=== PATIENT | female | born 1995 | race African-American/Black ===

== ENCOUNTER 2018-04-23 22:01 | Emergency (ER) | payer OTHER ==
[~2018-04-23] VITALS: Ht 154.9 cm; Wt 90.7 kg
[~2018-04-23 22:01] MED LIST: ACYCLOVIR 400400 MG PO; CIPROFLOXACIN500 M1 PO; CYCLOBENZAPRINE5 MG PO; IBUPROFEN 800800 MG PO; NAPROSYN500 MG PO; NORCO 5-325 TA1 EAC1 PO; PENICILLIN VK500 MG PO; TOBRADEX ST EYE5 ML OPHTHALMIC
[2018-04-23 22:24] LABS: URINE BILIRUBIN NEGATIVE (Negative); URINE BLOOD TRACE (Negative); URINE CLARITY CLEAR; URINE COLOR YELLOW; URINE GLUCOSE-RANDOM NEGATIVE (Negative); URINE KETONES NEGATIVE (Negative); URINE LEUKOCYTES-REFLEX 1+ (Negative); URINE NITRITE-REFLEX NEGATIVE (Negative); URINE PROTEIN NEGATIVE (Negative); URINE SPECIFIC GRAVITY 1.025 (1.005-1.030)
[2018-04-23 22:33] LABS: BACTERIA-REFLEX 1-9 Few /HPF (None Seen); CASTS None Seen /LPF (None Seen); CRYSTALS None Seen /LPF (None Seen); SQUAMOUS 4-10 Moderate /LPF (0-3); URINE RBC 0-2 Rare /HPF (0-2); URINE WBC-REFLEX 6-15 Few /HPF (0-5)
[2018-04-23] MEDS ORDERED: FLAGYL500 MG PO (23:18)
[2018-04-23] MEDS ORDERED: DOXYCYCLINE 10100 MG PO (23:45)
[2018-04-23 23:49] VITALS: BP 127/70
== END 2018-04-23 23:52 | disposition home or self-care (01) ==
LOC: M.ERS 22:01
PROVIDERS: Nurse Practitioner Family
DX: N72 Inflammatory disease of cervix uteri (principal); N76.0 Acute vaginitis; B96.89 Other specified bacterial agents as the cause of diseases classified elsewhere; N73.9 Female pelvic inflammatory disease, unspecified

== ENCOUNTER 2018-05-09 15:57 | Emergency (ER) | payer OTHER ==
[~2018-05-09] VITALS: Ht 154.9 cm; Wt 90.7 kg
[~2018-05-09 15:57] MED LIST changes: +DOXYCYCLINE 10100 MG PO; +FLAGYL500 MG PO
[2018-05-09 16:05] VITALS: BP 137/81
== END 2018-05-09 16:37 | disposition home or self-care (01) ==
LOC: M.ERS 15:57
DX: K64.8 Other hemorrhoids (principal)

== ENCOUNTER 2018-08-23 12:36 | Emergency (ER) | payer OTHER ==
[~2018-08-23] VITALS: Ht 154.9 cm; Wt 93.0 kg
[2018-08-23 12:52] LABS: URINE BILIRUBIN NEGATIVE (Negative); URINE BLOOD NEGATIVE (Negative); URINE CLARITY CLEAR; URINE COLOR YELLOW; URINE GLUCOSE-RANDOM NEGATIVE (Negative); URINE KETONES NEGATIVE (Negative); URINE LEUKOCYTES-REFLEX NEGATIVE (Negative); URINE NITRITE-REFLEX NEGATIVE (Negative); URINE PROTEIN NEGATIVE (Negative); URINE UROBILINOGEN 0.2 E.U./dl (0.2-1.0)
[2018-08-23 13:38] LABS: CREATININE 0.7 mg/dL (0.6-1.3); POTASSIUM 4.5 mmol/L (3.5-5.1)
[2018-08-23 13:42] LABS: ALBUMIN 3.8 g/dL (3.4-5.0); TOTAL BILIRUBIN 0.4 mg/dL (<0.1-1.0)
[2018-08-23 13:46] LABS: ABSOLUTE BASOPHILS 0.1 thou/uL (0.0-0.2); ABSOLUTE LYMPHOCYTES 1.5 thou/uL (0.8-5.3); ABSOLUTE MONOCYTES 0.7 thou/uL (0.0-1.2); ABSOLUTE NEUTROPHILS 11.8 thou/uL (1.6-8.1); BASOPHILS 0.5 %; EOSINOPHILS 0.3 %; HEMOGLOBIN 13.9 gm/dL (12.0-15.0); LYMPHOCYTES 10.4 %; MCH 29.7 pg (26.0-34.0); MCHC 33.9 g/dL (28.0-37.0); MCV 87.4 fL (80.0-100.0); MONOCYTES 5.2 %; MPV 9.4 fl. (7.2-11.1); NUCLEATED RBCS 0 /100WBC; PLATELET COUNT* 198 thou/uL (150-400); POLYS 83.6 %; RBC 4.69 mil/uL (4.20-5.00); RDW-CV 14.2 % (10.5-14.5); WBC 14.1 thou/uL (4.0-11.0)
[2018-08-23] MEDS ORDERED: BENTYL 20 MG TA20 M1 PO (14:14)
[2018-08-23] MEDS ORDERED: ZOFRAN ODT4 MG PO (14:14)
[2018-08-23 14:33] VITALS: BP 143/83
== END 2018-08-23 14:33 | disposition home or self-care (01) ==
LOC: M.ERS 12:36
PROVIDERS: Nurse Practitioner Family
DX: K52.9 Noninfective gastroenteritis and colitis, unspecified (principal); N72 Inflammatory disease of cervix uteri; F17.210 Nicotine dependence, cigarettes, uncomplicated

== ENCOUNTER 2018-10-18 18:30 | Emergency (ER) | payer OTHER ==
[~2018-10-18] VITALS: Ht 154.9 cm; Wt 93.0 kg
[~2018-10-18 18:30] MED LIST changes: +BENTYL 20 MG TA20 M1 PO; +ZOFRAN ODT4 MG PO
[2018-10-18 19:24] LABS: URINE BILIRUBIN NEGATIVE (Negative); URINE BLOOD NEGATIVE (Negative); URINE CLARITY CLEAR; URINE COLOR YELLOW; URINE GLUCOSE-RANDOM NEGATIVE (Negative); URINE KETONES NEGATIVE (Negative); URINE LEUKOCYTES-REFLEX NEGATIVE (Negative); URINE NITRITE-REFLEX NEGATIVE (Negative); URINE PROTEIN NEGATIVE (Negative); URINE SPECIFIC GRAVITY 1.015 (1.005-1.030)
[2018-10-18 19:44] LABS: ABSOLUTE EOSINOPHILS 0.2 thou/uL (0.0-0.7); ABSOLUTE MONOCYTES 0.7 thou/uL (0.0-1.2); ABSOLUTE NEUTROPHILS 5.6 thou/uL (1.6-8.1); BASOPHILS 0.5 %; EOSINOPHILS 2.6 %; HEMATOCRIT 41.1 % (37.0-47.0); HEMOGLOBIN 14.3 gm/dL (12.0-15.0); LYMPHOCYTES 31.3 %; MCH 29.9 pg (26.0-34.0); MCHC 34.8 g/dL (28.0-37.0); MPV 8.8 fl. (7.2-11.1); NUCLEATED RBCS 0 /100WBC; PLATELET COUNT* 220 thou/uL (150-400); POLYS 58.6 %; RBC 4.77 mil/uL (4.20-5.00); RDW-CV 14.2 % (10.5-14.5); WBC 9.6 thou/uL (4.0-11.0)
[2018-10-18 19:54] LABS: ALBUMIN 4.1 g/dL (3.4-5.0); CALCIUM 9.3 mg/dL (8.5-10.1); CREATININE 0.7 mg/dL (0.6-1.3); TOTAL BILIRUBIN 0.2 mg/dL (<0.1-1.0); TOTAL PROTEIN 8.5 g/dL (6.4-8.2)
[2018-10-18] MEDS ORDERED: DOXYCYCLINE 10100 MG PO (22:25)
[2018-10-18] MEDS ORDERED: NABUMETONE 750750 M1 PO (22:25)
[2018-10-18 22:35] VITALS: BP 130/80
== END 2018-10-18 22:45 | disposition home or self-care (01) ==
LOC: M.ERS 18:30
PROVIDERS: Nurse Practitioner Family
DX: N83.201 Unspecified ovarian cyst, right side (principal); N83.202 Unspecified ovarian cyst, left side; N73.9 Female pelvic inflammatory disease, unspecified; F17.210 Nicotine dependence, cigarettes, uncomplicated